=== PATIENT | male | born 1950 | race Caucasian/White ===

== ENCOUNTER 2019-03-09 04:04 | Emergency (ER) | payer OTHER ==
[~2019-03-09] VITALS: Ht 190.5 cm; Wt 123.4 kg
[~2019-03-09 04:04] MED LIST: ALLO300T2 PO; ASPI-605 PO; ATEN25TA PO; LISI-607 PO; METF-440 PO; SIMV10TA6 PO; TAMS0.4C34 PO
--- NOTE | 2019-03-09 04:10 | NUR ---
Dr. Romero at bedside for MSE.
[2019-03-09] MEDS ORDERED: IV NORMAL SALINE 1000 ML BAG IV ONE (04:15)
[2019-03-09] MEDS ORDERED: DILTIAZEM HCL 25 MG IV IV ONE (04:15)
[2019-03-09] MEDS ORDERED: ALLOPURINOL 300 MG (04:27)
[2019-03-09] MEDS ORDERED: DILTIAZEM HCL 25 MG IV ONE (04:27)
[2019-03-09] MEDS ORDERED: FAMOTIDINE 40 MG (04:27)
[2019-03-09] MEDS ORDERED: LISINOPRIL 20 MG (04:27)
[2019-03-09] MEDS ORDERED: TAMSULOSIN HCL .4 MG CAPS (04:28)
[2019-03-09] MEDS ORDERED: METFORMIN HYDROCHLORIDE (04:28)
[2019-03-09] MEDS ORDERED: METOPROLOL TARTRATE 25 MG TABS (04:28)
[2019-03-09] MEDS ORDERED: PRADAXA 150 MG (04:28)
[2019-03-09] MEDS ORDERED: ROSUVASTATIN CALCIUM 20 MG TAB (04:28)
--- NOTE | 2019-03-09 04:38 | NUR ---
Xray at bedside.
[2019-03-09 04:49] LABS: POTASSIUM 4.1 mmol/L (3.5-5.1)
[2019-03-09 05:01] LABS: BILIRUBIN,DIRECT 0.1 mg/dL (0.0-0.2); BILIRUBIN,TOTAL 0.6 mg/dL (0.2-1.0); TOTAL PROTEIN, SERUM 7.5 g/dL (6.4-8.2)
[2019-03-09 05:24] LABS: BASOPHILS % (AUTO) 0.2 % (0.0-2.0); EOSINOPHILS # (AUTO) 0.1 K/uL (0.0-0.7); EOSINOPHILS % (AUTO) 1.1 % (0.0-7.0); HEMATOCRIT 39.2 % (36.7-47.1); HEMOGLOBIN 13.2 g/dL (12.5-16.3); LYMPHOCYTES # (AUTO) 3.9 K/uL (20.0-40.0); LYMPHOCYTES % (AUTO) 39.3 % (20.5-51.5); MEAN CORPUSCULAR HEMOGLOBIN 32.1 uug (23.8-33.4); MEAN CORPUSCULAR HGB CONC 34 g/dL (32.5-36.3); MEAN CORPUSCULAR VOLUME 95.2 fL (73.0-96.2); MONOCYTES # (AUTO) 0.9 K/uL (2.0-10.0); MONOCYTES % (AUTO) 8.7 % (0.0-11.0); NEUTROPHILS # (AUTO) 5.1 K/uL (1.8-8.9); NEUTROPHILS % (AUTO) 50.7 % (38.5-71.5); PLATELET COUNT (AUTO) 181 K/uL (152-348); RED BLOOD CELL COUNT(AUTO) 4.12 MIL/uL (4.06-5.63)
--- NOTE | 2019-03-09 05:25 | NUR ---
Patient discharged to home in stable conditon. Written and verbal after care instructions given. Patient verbalizes understanding of instructions. Patient ambulated out of ER with steady gait, no acute signs of distress, VSS, all belongings taken, IV site discontinued.
[2019-03-09 05:28] VITALS: BP 126/74
== END 2019-03-09 05:28 | disposition home or self-care (01) ==
LOC: ER 04:08
DX: I48.0 Paroxysmal atrial fibrillation (principal); I10 Essential (primary) hypertension; I25.2 Old myocardial infarction; E11.9 Type 2 diabetes mellitus without complications; E78.5 Hyperlipidemia, unspecified; F12.10 Cannabis abuse, uncomplicated; Z90.89 Acquired absence of other organs; Z88.1 Allergy status to other antibiotic agents; Z79.899 Other long term (current) drug therapy; Z79.82 Long term (current) use of aspirin
CPT/HCPCS: 36415; 71045; 80048; 80076; 83880; 84484; 85025; 85730; 93005; 96374; 99284; J3490; 70030-TC; A4663; J7030

== ENCOUNTER 2021-01-22 14:14 | Emergency (ER) | payer OTHER ==
[~2021-01-22] VITALS: Ht 190.5 cm; Wt 115.7 kg
[~2021-01-22 14:14] MED LIST changes: -ALLO300T2 PO; +ALLOPURINOL 300 MG; -ASPI-605 PO; -ATEN25TA PO; +FAMOTIDINE 40 MG; -LISI-607 PO; +LISINOPRIL 20 MG; -METF-440 PO; +METFORMIN HYDROCHLORIDE; +METOPROLOL TARTRATE 25 MG TABS; +PRADAXA 150 MG; +ROSUVASTATIN CALCIUM 20 MG TAB; -SIMV10TA6 PO; -TAMS0.4C34 PO; +TAMSULOSIN HCL .4 MG CAPS
[2021-01-22 14:53] LABS: BASOPHILS % (AUTO) 0.3 % (0.0-2.0); EOSINOPHILS # (AUTO) 0.1 K/uL (0.0-0.7); EOSINOPHILS % (AUTO) 0.8 % (0.0-7.0); HEMATOCRIT 42.5 % (36.7-47.1); HEMOGLOBIN 14.3 g/dL (12.5-16.3); LYMPHOCYTES # (AUTO) 2.7 K/uL (20.0-40.0); LYMPHOCYTES % (AUTO) 34.3 % (20.5-51.5); MEAN CORPUSCULAR HEMOGLOBIN 32.5 uug (23.8-33.4); MEAN CORPUSCULAR HGB CONC 34 g/dL (32.5-36.3); MEAN CORPUSCULAR VOLUME 96.8 fL (73.0-96.2); MONOCYTES # (AUTO) 0.8 K/uL (2.0-10.0); MONOCYTES % (AUTO) 9.7 % (0.0-11.0); NEUTROPHILS # (AUTO) 4.4 K/uL (1.8-8.9); NEUTROPHILS % (AUTO) 54.9 % (38.5-71.5); PLATELET COUNT (AUTO) 236 K/uL (152-348)
[2021-01-22 14:56] LABS: CREATININE 1.1 mg/dL (0.6-1.3); POTASSIUM 3.9 mmol/L (3.5-5.1)
[2021-01-22 15:15] LABS: BILIRUBIN,DIRECT 0.1 mg/dL (0.0-0.2); BILIRUBIN,TOTAL 0.6 mg/dL (0.2-1.0); TOTAL PROTEIN, SERUM 8.1 g/dL (6.4-8.2)
[2021-01-22] MEDS ORDERED: IV NORMAL SALINE 500 ML BAG IV ONE (15:15)
== END 2021-01-22 19:01 | disposition short-term general hospital (02) ==
LOC: ER 14:14
DX: E86.0 Dehydration (principal); R53.1 Weakness; R94.31 Abnormal electrocardiogram [ECG] [EKG]; M10.9 Gout, unspecified; I25.2 Old myocardial infarction; I10 Essential (primary) hypertension; E78.5 Hyperlipidemia, unspecified; E11.9 Type 2 diabetes mellitus without complications; I69.354 Hemiplegia and hemiparesis following cerebral infarction affecting left non-dominant side; J98.11 Atelectasis; Z20.822 Contact with and (suspected) exposure to COVID-19; Z79.84 Long term (current) use of oral hypoglycemic drugs; Z79.899 Other long term (current) drug therapy; Z88.1 Allergy status to other antibiotic agents; Z79.01 Long term (current) use of anticoagulants
CPT/HCPCS: 36415; 70030-TC; 70450; 71045; 85025; 85730; 93005; A4663; J7030

== ENCOUNTER 2021-01-28 16:17 | Emergency (ER) | payer OTHER ==
[~2021-01-28] VITALS: Ht 190.5 cm; Wt 121.6 kg
--- NOTE | 2021-01-28 16:30 | NUR ---
at bedside for MSE at this time.
--- NOTE | 2021-01-28 16:55 | NUR ---
truck service technician at bedside at this time.
--- NOTE | 2021-01-28 17:06 | NUR ---
noted at bedside, no signs of acute distress noted
[2021-01-28] MEDS ORDERED: HYDR-3980 PO (17:15)
--- NOTE | 2021-01-28 17:15 | NUR ---
Right wrist splint applied. Splint care discussed with and patient. Verbalized understanding.
--- NOTE | 2021-01-28 17:23 | NUR ---
Patient to be discharged home, in stable condition. Written and verbal after care instructions given and discussed with at bedside. Patient and verbalizes understanding of instructions. Stressed follow up or return to ER for worsening s/s. Ambulance arranged for BLS transport home.
[2021-01-28 17:27] VITALS: BP 134/80
--- NOTE | 2021-01-28 17:31 | NUR ---
Ambulance transport arranged with [facility]. ETA: 45 mins
--- NOTE | 2021-01-28 18:08 | NUR ---
Report given to supervisor dry cleaning. IV removed. No s/s of bleeding noted. No s/s of distress or sob noted.
== END 2021-01-28 18:12 | disposition home or self-care (01) ==
LOC: ER 16:17
DX: M19.19 Post-traumatic osteoarthritis, other specified site (principal); T14.90XS Injury, unspecified, sequela; X58.XXXS Exposure to other specified factors, sequela; I25.2 Old myocardial infarction; F03.90 Unspecified dementia, unspecified severity, without behavioral disturbance, psychotic disturbance, mood disturbance, and anxiety; E78.5 Hyperlipidemia, unspecified; I10 Essential (primary) hypertension; M10.9 Gout, unspecified; E11.9 Type 2 diabetes mellitus without complications; Z79.02 Long term (current) use of antithrombotics/antiplatelets; Z79.84 Long term (current) use of oral hypoglycemic drugs; Z79.899 Other long term (current) drug therapy
CPT/HCPCS: 73090; 73130; A4663

== ENCOUNTER 2021-06-26 07:47 | Emergency (ER) | payer OTHER ==
[~2021-06-26] VITALS: Ht 177.8 cm; Wt 120.2 kg
[2021-06-26 08:10] LABS: HEMATOCRIT 39.5 % (36.7-47.1); MEAN CORPUSCULAR HEMOGLOBIN 32.4 uug (23.8-33.4); MEAN CORPUSCULAR VOLUME 94.9 fL (73.0-96.2); PLATELET COUNT (AUTO) 249 K/uL (152-348)
[2021-06-26] MEDS ORDERED: VALACYCLOVIR HCL 500 MG TABLET PO ONE (08:15)
[2021-06-26] MEDS ORDERED: SIME80TA15 PO (08:20)
[2021-06-26] MEDS ORDERED: BISA-79 PO (08:20)
[2021-06-26] MEDS ORDERED: GLIP10TA11 PO ×2 (08:20)
[2021-06-26] MEDS ORDERED: DOCU100C36 PO (08:20)
[2021-06-26 08:21] LABS: CREATININE 0.9 mg/dL (0.6-1.3); POTASSIUM 4.1 mmol/L (3.5-5.1)
--- NOTE | 2021-06-26 08:34 | NUR ---
PT IS IN ROOM #1B. DR MIRANDA EVALUATED THE PT.
[2021-06-26 08:35] LABS: BILIRUBIN,DIRECT 0.1 mg/dL (0.0-0.2); BILIRUBIN,TOTAL 0.5 mg/dL (0.2-1.0); TOTAL PROTEIN, SERUM 7.7 g/dL (6.4-8.2)
[2021-06-26] MEDS ORDERED: VALACYCLOVIR HCL 500 MG TABLET ONE (08:40)
[2021-06-26] MEDS ORDERED: IV NS 1000 ML 1,000 ML IV ONE (09:00)
[2021-06-26] MEDS ORDERED: IV NORMAL SALINE 1000 ML BAG IV ONE (11:00)
[2021-06-26] MEDS ORDERED: ONDANSETRON 4 MG/2 ML VIAL IV ONE (12:15)
[2021-06-26] MEDS ORDERED: MORPHINE SULFATE 2 MG/1 ML DISP.SYRIN IV ONE (12:15)
[2021-06-26] MEDS ORDERED: FAMOTIDINE. 20 MG/2 ML VIAL IV ONE (12:18)
[2021-06-26] MEDS ORDERED: MORPHINE SULFATE 2 MG/1 ML DISP.SYRIN ONE (12:26)
[2021-06-26] MEDS ORDERED: ONDANSETRON 4 MG/2 ML VIAL ONE (12:27)
--- NOTE | 2021-06-26 14:45 | NUR ---
PTIS GOING TO BE TRANSFERED TO [facility] ER VIA BLS AMBULANCE. DR DAI IS ADMITTING MD. PHONE NUMBER TO CALL REPORT IS [phone].
--- NOTE | 2021-06-26 16:10 | NUR ---
REPORT WAS GIVEN TO STEPHANI POWER FROM [facility] ER. PT WAS TRANSFERED TO [facility] ER VIA [facility].
== END 2021-06-26 16:18 | disposition short-term general hospital (02) ==
LOC: ER 07:47
DX: G93.40 Encephalopathy, unspecified (principal); E86.0 Dehydration; B02.9 Zoster without complications; Z20.822 Contact with and (suspected) exposure to COVID-19; R00.0 Tachycardia, unspecified; I45.10 Unspecified right bundle-branch block; R94.6 Abnormal results of thyroid function studies; D72.829 Elevated white blood cell count, unspecified; I25.2 Old myocardial infarction; Z86.73 Personal history of transient ischemic attack (TIA), and cerebral infarction without residual deficits; Z88.1 Allergy status to other antibiotic agents; N40.0 Benign prostatic hyperplasia without lower urinary tract symptoms; E78.5 Hyperlipidemia, unspecified
CPT/HCPCS: 36415; 71045; 80048; 80076; 83605; 83880; 84145; 84443; 84484; 85025; 85730; 87040 ×2; 87426; 93005; 96361; 96374; 96375; 99285; J2270; J2405; 70030-TC; A4663; J3490

== ENCOUNTER 2021-07-24 15:21 | Emergency (ER) | payer OTHER ==
[~2021-07-24] VITALS: Ht 190.5 cm; Wt 104.3 kg
[~2021-07-24 15:21] MED LIST changes: +BISA-79 PO; +DOCU100C36 PO; +GLIP10TA11 PO; +SIME80TA15 PO
[2021-07-24] MEDS ORDERED: IV NORMAL SALINE 500 ML BAG IV ONE (15:30)
--- NOTE | 2021-07-24 15:30 | NUR ---
No information about current home medications available.
--- NOTE | 2021-07-24 15:43 | NUR ---
PT IS IN ROOM #1A. DR HENLEY EVALUATED THE PT.
[2021-07-24 16:27] LABS: HEMATOCRIT 40.5 % (36.7-47.1); MEAN CORPUSCULAR HEMOGLOBIN 31.5 uug (23.8-33.4); MEAN CORPUSCULAR VOLUME 94.5 fL (73.0-96.2); PLATELET COUNT (AUTO) 479 K/uL (152-348)
[2021-07-24 16:32] LABS: CREATININE 1.2 mg/dL (0.6-1.3); POTASSIUM 5.1 mmol/L (3.5-5.1)
[2021-07-24 16:46] LABS: BILIRUBIN,DIRECT 0.1 mg/dL (0.0-0.2); BILIRUBIN,TOTAL 0.4 mg/dL (0.2-1.0)
[2021-07-24 17:16] LABS: *BILIRUBIN,URIN NEGATIVE (NEGATIVE); *BLOOD, URINE 2+ (NEGATIVE); *CLARITY,URINE CLEAR (CLEAR); *COLOR,URINE YELLOW (YELLOW); *KETONES,URINE NEGATIVE (NEGATIVE); *UROBILINOGEN,URINE 0.2 E.U./dl (NORMAL); LEUKOCYTE ESTERASE ,URINE NEGATIVE (NEGATIVE); NITRITE, URINE NEGATIVE (NEGATIVE); PH,URINE 5.5 (5.0-8.0); UGLUCOSE NEGATIVE (NEGATIVE)
[2021-07-24 17:24] LABS: BACTERIA,URINE NONE SEEN /HPF (NONE SEEN); CALCIUM OXALATE CRYSTALS,UR FEW /HPF (NONE SEEN); WBC,URINE 0-3 /HPF (0-3)
[2021-07-24] MEDS ORDERED: PIPERACILLIN SODIUM/TAZOBACTAM 3.375 G in IV DEXTROSE 5% 50 ML IV ONE (17:30)
[2021-07-24] MEDS ORDERED: VANCOMYCIN 1G/D5W 200 ML PIGGYBACK IV ONE (17:30)
[2021-07-24] MEDS ORDERED: IV NS 1000 ML 1,000 ML IV ONE (17:30)
[2021-07-24] MEDS ORDERED: PIPERACILLIN/TAZOBACTAM/D5W 50 ML IV ONE (17:44)
[2021-07-24] MEDS ORDERED: VANCOMYCIN IV 200 ML ONE (17:45)
--- NOTE | 2021-07-24 19:01 | NUR ---
PT IS GOING TO BE TRANSFERED TO [facility]. [facility] ROOFING MACHINE OPERATOR CALLED BACK. DR HENLEY TALKED TO DR DOUGHERTY FROM [facility] ABOUT PT's TRANSFER.
--- NOTE | 2021-07-24 20:43 | NUR ---
left phone number [phone]
[2021-07-24] MEDS ORDERED: LORAZEPAM 2 MG/1 ML VIAL IV ONE ×2 (21:00→21:45)
[2021-07-24] MEDS ORDERED: LORAZEPAM 2 MG/1 ML VIAL ONE ×2 (21:01→21:58)
[2021-07-24] MEDS ORDERED: HYDROCODONE/APAP 10-325 MG TABLET PO ONE (21:15)
[2021-07-24] MEDS ORDERED: HYDROCODONE/APAP 10-325 MG TABLET ONE (21:21)
--- NOTE | 2021-07-24 22:40 | NUR ---
report was called to Kira STYLES at [facility]. pt to be transferred to room 511 phone number [phone]. awaiting ambulance transport.
--- NOTE | 2021-07-24 23:31 | NUR ---
Patient Tranfers to outside Facility [facility] Physician:Dr. Hubbard Location:Room 5115 A Report given to Amira STYLES with [facility] ambulance number [id number]. Pt's at bedside she was informed visiting hours at [facility] are closed for tonight and she will need to visit tomorrow morning.
== END 2021-07-24 23:38 | disposition short-term general hospital (02) ==
LOC: ER 15:23
DX: E87.2 Acidosis (principal); I25.2 Old myocardial infarction; Z86.73 Personal history of transient ischemic attack (TIA), and cerebral infarction without residual deficits; E78.5 Hyperlipidemia, unspecified; I48.91 Unspecified atrial fibrillation; Z79.84 Long term (current) use of oral hypoglycemic drugs; Z79.02 Long term (current) use of antithrombotics/antiplatelets; E11.9 Type 2 diabetes mellitus without complications; M10.9 Gout, unspecified; D72.829 Elevated white blood cell count, unspecified; D75.839 Thrombocytosis, unspecified; I44.0 Atrioventricular block, first degree; R79.89 Other specified abnormal findings of blood chemistry; R31.29 Other microscopic hematuria; R70.0 Elevated erythrocyte sedimentation rate; Z20.822 Contact with and (suspected) exposure to COVID-19; N40.0 Benign prostatic hyperplasia without lower urinary tract symptoms; R03.1 Nonspecific low blood-pressure reading; Z88.1 Allergy status to other antibiotic agents
CPT/HCPCS: 36415; 51702; 71045; 73630; 80048; 80076; 81001; 83605 ×2; 83880; 84443; 84484; 85025; 85651; 85730; 87040 ×2; 87086; 87426; 93005; 96361; 96365; 96367; 96375; 96376; 99285; J2060 ×2; J2543; J3370; 70030-TC; A4663; J7030